=== PATIENT | female | born 1955 | race Caucasian/White ===

== ENCOUNTER 2016-10-10 11:13 | Emergency (ER) | payer OTHER ==
[~2016-10-10 11:13] MED LIST: AZITHROMYCIN250 MG PO; AZITHROMYCIN500 MG PO; CEFDINIR300 MG PO; DIAZEPAM 5MG TAB5 MG PO; DUONEB 2.5-0.5M1 AMP INH; DUONEB 2.5-0.5M1 AMP NEB; FUROSEMIDE 40MG40 MG PO; HUMALOG100 UNIT/1 SQ; HYDROCODON-ACE1 EAC6 PO; LANTUS100 UNIT/1 SC; LANTUS100 UNIT/1 SQ; LASIX20 MG PO; PHENTERMINE H37.5 MG PO; PREDNISONE10 MG PO; SLIDINGSCALE INSULIN; VALIUM10 MG PO; ZESTRIL5 MG PO
[2016-10-10 12:19] LABS: BASOPHIL 0.6 % (0-2); EOSINOPHIL 4.3 % (0-5); HCT 43.3 % (37.0-47.0); HGB 13.9 g/dl (12.5-16.0); LYMPHOCYTE 36.6 % (15-48); MCHC 32.1 g/dL (32.0-36.0); MCV 93.3 fL (78.0-100.0); MONOCYTE 6.8 % (0-12); MPV 10.9 fL (6.0-9.5); NEUTROPHIL 51.7 % (41-80); PLT 337 K/uL (150-400); RBC 4.64 M/uL (4.20-5.40); WBC 8.9 K/uL (4.0-10.5)
[2016-10-10 12:36] LABS: ALBUMIN 4.1 g/dL (3.4-4.8); BILIRUBIN - TOTAL 0.3 mg/dL (0.1-1.0); CREATININE 0.9 mg/dL (0.5-1.0); POTASSIUM 4.2 mmol/L (3.5-5.1); TOTAL PROTEIN 7.1 g/dL (6.4-8.3)
== END 2016-10-10 14:00 | disposition home or self-care (01) ==
LOC: FER 11:13
PROVIDERS: Nurse Practitioner
DX: J20.9 Acute bronchitis, unspecified (principal); I11.0 Hypertensive heart disease with heart failure; E11.9 Type 2 diabetes mellitus without complications; F41.9 Anxiety disorder, unspecified; Z79.51 Long term (current) use of inhaled steroids; Z79.4 Long term (current) use of insulin; Z79.899 Other long term (current) drug therapy
CPT/HCPCS: 36415; 71020; 80053; 85025; 87804; 87899; 94640; 94664; J1885; J2930

== ENCOUNTER 2016-11-21 17:47 | Emergency (ER) | payer OTHER | END 2016-11-21 21:57 | disposition home or self-care (01) | LOC: FER 17:47 | DX: J44.9 Chronic obstructive pulmonary disease, unspecified (principal); R51 Headache; I50.9 Heart failure, unspecified; E11.9 Type 2 diabetes mellitus without complications; Z79.4 Long term (current) use of insulin; Z79.899 Other long term (current) drug therapy | CPT/HCPCS: 71020; 93005; 94640; 94760; J2930 ==

== ENCOUNTER 2016-12-30 13:14 | Emergency (ER) | payer OTHER | END 2016-12-30 17:15 | disposition home or self-care (01) | LOC: FER 13:14 | DX: S83.91XA Sprain of unspecified site of right knee, initial encounter (principal); I10 Essential (primary) hypertension; E10.9 Type 1 diabetes mellitus without complications; J44.9 Chronic obstructive pulmonary disease, unspecified; Z79.899 Other long term (current) drug therapy; X50.1XXA Overexertion from prolonged static or awkward postures, initial encounter | CPT/HCPCS: 73564; J1100; J1885 ==

== ENCOUNTER 2021-06-13 12:09 | Emergency (ER) | payer OTHER, MEDICARE ==
[~2021-06-13 12:09] MED LIST changes: +CYCLOBENZAPRINE10 MG PO; +DEXAMETHASONE 2M2 MG PO; +GABAPENTIN600 MG PO; +HUMALOG100 UNIT/2 SC; +IBUPROFEN800 MG PO; +LASIX40 MG PO; +MELOXICAM7.5 MG PO; +MOBIC7.5 MG PO; +PHENERGAN25 M1 PO; +PREDNISONE 10MG10 MG PO; +PREDNISONE 20MG20 MG PO; +PREDNISONE20 MG PO; +SINGULAIR10 MG PO; +TRAZODONE 150M150 MG PO; +VENTOLIN HFA IN18 GM INH; +VICODIN 10/3251 EACH PO; +VICTOZA 2-0.6 MG/0.1 SC
== END 2021-06-13 16:40 | disposition home or self-care (01) ==
LOC: FER 12:09
DX: S16.1XXA Strain of muscle, fascia and tendon at neck level, initial encounter (principal); I50.9 Heart failure, unspecified; E11.9 Type 2 diabetes mellitus without complications; J45.909 Unspecified asthma, uncomplicated; Z87.891 Personal history of nicotine dependence; V43.62XA Car passenger injured in collision with other type car in traffic accident, initial encounter; Y92.410 Unspecified street and highway as the place of occurrence of the external cause
CPT/HCPCS: 72125